=== PATIENT | male | born 1960 | race Caucasian/White ===

== ENCOUNTER 2025-08-31 11:01 | Emergency (ER) | payer MEDICARE, SELFPAY ==
[2025-08-31 11:02] VITALS: BMI 28.8
--- NOTE | 2025-08-31 11:52 | XR_ITS ---
Examination: Left hip AP, lateral, AP pelvis 3 views Technique: Hip AP lateral, AP pelvis, 3 views Exam date and time: August 31, 2025, 1201 hours INDICATIONS: Left hip pain 1 month FINDINGS: Advanced left hip osteoarthritis No fracture Flattening fragmentation and sclerosis of the femoral head IMPRESSION: Advanced left hip osteoarthritis Prominent avascular necrosis left femoral head.
--- NOTE | 2025-08-31 11:52 | XR_ITS ---
EXAMINATION: Left femur 2 views TECHNIQUE: AP lateral left femur 2 views Date and time: August 31, 2025, total 07 hours INDICATIONS: Left femur pain 1 month. FINDINGS: Significant left hip osteoarthritis Sclerosis fragmentation and flattening of the left femoral head consistent with avascular necrosis Shaft of the femur are intact IMPRESSION: Significant left hip osteoarthritis Prominent avascular necrosis left femoral head
--- NOTE | 2025-08-31 11:52 | XR_ITS ---
Examination: Duplex scan of the lower extremity, unilateral left Date and time of exam: August 31, 2025, 12:26 p.m. INDICATIONS: Upper left leg pain beginning 3 months ago Technique: Duplex scan of the extremity veins using B-mode/grayscale imaging and Doppler spectral analysis and color flow Attention is directed to internal echogenicity, compression and augmentation involving these veins, color flow assessment, spectral analysis Findings: Major deep venous structures in the extremity demonstrate normal course and caliber. There is no evidence of deep vein thrombosis. Normal color flow and spectral analysis Impression: Negative for DVT..
[2025-08-31 12:15] VITALS: BP 170/85; PULSE 86; RESP 18; TEMP 36.8; O2SAT 98
--- NOTE | 2025-08-31 13:31 | EDNOTE_ITS ---
Lower Extremity Injury RME/HPI General Chief Complaint: Extremity Injury, Lower Stated Complaint: left leg pain Time Seen by Provider: 08/31/25 11:40 Arrival date/time: 08/31/25 11:01 65-year-old male presents to the emergency department for complaints of left hip pain patient report symptoms over the last 2 to 3 months patient reports no fever nausea or vomiting no swelling Limitations: no limitations Related Data Previous Rx's ?Medication ?Instructions ?Recorded hydrocodone 5 mg-acetaminophen 325 1 tab PO BID PRN pa in #10 tabs 08/31/25 mg tablet Review of Systems Review of Systems Systems Reviewed: All systems reviewed, normal except as documented Constitutional Constitutional: Reports system reviewed and no additional complaints, except as documented, Denies fever(s) and Denies headache(s) Eyes Eyes: Reports system reviewed and no additional complaints, except as documented and Denies blurry vision ENT Ears, Nose, Mouth, and Throat: Reports system reviewed and no additional complaints, except as documented, Denies headache(s), Denies nasal congestion and Denies nasal discharge Cardiovascular Cardiovascular: Reports system reviewed and no additional complaints, except as documented, Denies chest pain and Denies dyspnea Respiratory Respiratory: Reports system reviewed and no additional complaints, except as documented, Denies chest congestion, Denies cough and Denies dyspnea Gastrointestinal Gastrointestinal: Reports system reviewed and no additional complaints, except as documented and Denies abdominal pain Musculoskeletal Musculoskeletal: Reports system reviewed and no additional complaints, except as documented, Reports abnormal gait, Reports arthralgias, Denies joint swelling, Denies numbness, Reports stiffness and Denies tingling Integumentary/Breasts Skin/Breast: Reports system reviewed and no additional complaints, except as documented and Denies rash Neurologic Neurologic: Reports system reviewed and no additional complaints, except as documented, Reports as per HPI, Reports abnormal gait, Denies headache(s), Denies numbness and Denies tingling Past Medical History Social History SMOKING STATUS: Never smoker ED Exam General Limitations: Present no limitations General appearance: Present alert and in no apparent distress Head Head exam: Present atraumatic Eye Eye exam: Present normal appearance, PERRL and EOMI ENT ENT exam: Present normal exam, normal oropharynx and mucous membranes moist Neck Neck exam: Present normal inspection, full ROM and trachea midline Chest Chest inspection: Present normal inspection and symmetric chest wall rise Respiratory Respiratory exam: Present normal lung sounds bilaterally Cardiovascular Cardiovascular exam: Present regular rate, normal rhythm and normal heart sounds Abdominal Exam Abdominal exam: Present soft and normal bowel sounds Extremities Exam Extremities exam: Present full ROM, tenderness and normal capillary refill; Absent pedal edema, joint swelling or calf tenderness Back Exam Back exam: Present normal inspection and full ROM Neurological Exam Neurological exam: Present alert, oriented X3 and CN II-XII intact Psychiatric Psychiatric exam: Present normal affect and normal mood Skin Skin exam: Present warm, dry, intact and normal color Course Quality Measures none Orders Category Date Time Status US venous doppler LE LT Stat Exams 08/31/25 11:52 Completed XR femur LT 2V Stat Exams 08/31/25 11:52 Completed XR hip LT w pelvis 2-3V Stat Exams 08/31/25 11:52 Completed Ketorolac Inj [Toradol Inj] Med 08/31/25 11:52 Discontinued 30 mg IM X1 ONE Vital Signs Vital signs: Vital Signs Temperature 98.2 F 08/31/25 12:15 Pulse Rate 86 08/31/25 12:15 Respiratory Rate 18 08/31/25 12:15 Blood Pressure 170/85 H 08/31/25 12:15 Pulse Oximetry (%) 98 08/31/25 12:15 Oxygen Delivery Method Room Air 08/31/25 12:15 O2 saturation 98% room air wnl Extremity Injury, Lower MDM Narrative MDM Narrative:: 65-year-old male presents to the emergency department for complaints of left hip pain patient report symptoms over the last 2 to 3 months patient reports no fever nausea or vomiting no swelling On exam patient has pain left hip no swelling or bruising Imaging of the left hip obtained as well as ultrasound patient appears to have avascular necrosis Had a long conversation the patient about follow-up with PCP in order get a referral for orthopedics and surgical intervention Patient medicated for pain discharge home with pain medication For emergent concerns patient is instructed return for evaluation Patient data External records reviewed:: [facility] previous records Clinical information provided by:: patient Social determinants that could affect healthcare access:: none Patient has the following chronic illnesses:: History How is presenting disease/condition affected by chronic disease/condition?: uneffected by Evaluation data The following diagnostics were reviewed and interpreted by me:: radiology exam(s ) Lab and/or radiology exams considered but not ordered:: Radiology obtained Interpretation Summary: Reviewed by me Medications / Prescriptions Medications or Prescriptions considered but not ordered:: Given Medication administrations:: Medication Administration History Discontinued Medications Ketorolac Tromethamine (Ketorolac Inj 30 Mg/Ml Vial) 30 mg IM X1 ONE Stop: 08/31/25 11:53 Given Consultations Consultation(s) initiated? (list below): No Diagnosis Extremity Injury, Lower Differential Diagnosis: other Most likely diagnosis given after review of the tests above:: Avascular necrosis left hip Admission Indicated Admission indicated?: not indicated Admission Request Was there a request for admission?: No Disposition Plan Disposition Plan: Discharge Discharge Attestation Discharge Attestation: The patient and all family members were given an opportunity to ask questions and understood the discharge instructions. Discharge instructions specifically effects, indications for sooner follow up or return to the emergency department, and the expected course of current diagnosis. Patient condition: Stable Discharge Plan Plan Patient Disposition: HOME (Self Care) Discharge Disposition comment: Stable Prescriptions/Referrals Prescriptions/Med Rec: New hydrocodone-acetaminophen 5-325 mg tablet 1 tab PO BID MDD 10 PRN (Reason: pain) Qty: 10 0RF Referrals: No Primary/Family,Physician [Primary Care Provider] - 09/01/25 Problem List Clinical Impression: Avascular necrosis of bone of left hip Patient/Caregiver Discharge Instructions Additional Instructions: Please follow up with your primary care doctor in the next 24-48hrs for any worsening symptoms return here immediately Is important you see your PCP in order to be referred to a specialist for further evaluation and treatment of your avascular necrosis Print Language: Amharic Stand Alone Forms: Stefanie Award Info., Patient Portal Info Letter PA/JERAD Supervising Physician PA/JERAD Supervising Physician: Dr monroe
== END 2025-08-31 15:16 | disposition home or self-care (01) ==
PROVIDERS: Emergency Provider Nurse Practitioner Primary Care
DX: M87.9 Osteonecrosis, unspecified (principal)
CPT/HCPCS: 73502; 73552; 93971; 99282

== ENCOUNTER 2025-10-24 13:05 | Outpatient (AMB) | payer MEDICARE, MEDICAID, SELFPAY ==
[2025-10-24 13:17] VITALS: BP 129/72; PULSE 110; RESP 19; TEMP 36.3; O2SAT 97; BMI 27.4
--- NOTE | 2025-10-24 13:17 | ORTHONT_ITS ---
Vital signs 10/24/25 13:17 Height 1.73 m Height Method Stated Weight 82.185 kg Weight Measurement Method Standing Scale BMI 27.4 BP 129/72 Blood Pressure Source Automatic Cuff Blood Pressure Location Left Upper Arm Position Sitting Respiration 19 Pulse 110 H Pulse Source Monitor Temp 97.3 F Temp Source Temporal Artery Scan Pulse Oximetry (%) 97 Oxygen Delivery Method Room Air Med/Allergies Allergies & Medications Allergies No Known Allergies Allergy (Verified 10/24/25 13:18) Medication Reconciliation hydrocodone 5 mg-acetaminophen 325 mg tablet 1 tab PO BID PRN pain #10 tabs 08/31/25 [Rx Confirmed 10/24/25] ibuprofen 800 mg tablet 800 mg PO Q8H 10/24/25 [History Confirmed 10/24/25] levothyroxine 25 mcg capsule 25 mcg PO QDAY 10/24/25 [History Confirmed 10/24/25] losartan 50 mg tablet 50 mg PO QDAY 10/24/25 [History Confirmed 10/24/25] Exam Exam Patient is in no acute distress and is cooperative with the examination today. Breathing is nonlabored. In no respiratory distress. Patient has no paraspinal tenderness. Spinal deformity cannot be appreciated. The gait of the patient is nonantalgic Bilateral extremities were evaluated and demonstrates sensation intact to light touch. Palpable pedal pulses are present. No significant edema is present. Bilateral knees were examined and the patient has full strength and range of motion.. The right hip was examined. Patient was able to flex to 90 degrees, adduct to 30 degrees, abduct to 40 degrees, internally rotate to 20 degrees, and externally rotate to 20 degrees. Patient has a negative logroll. Stinchfield is negative. The patient is nontender diffusely to touch. The left hip was examined. Patient was able to flex to 90 degrees, adduct to 30 degrees, abduct to 40 degrees, internally rotate to 10 degrees, and externally rotate to 20 degrees. Patient has a positive logroll and Stinchfield Assessment and Plan Problem List (1) Avascular necrosis of bone of left hip: Status: Inactive Plan ASSESSMENT AND PLAN 1. Avascular necrosis: The patient's symptoms and clinical presentation suggest a diagnosis of avascular necrosis. He reports persistent pain in the hip and knee area for the past 5 months, which has been worsening rapidly. He has been using ibuprofen 800 mg for pain relief, which has been ineffective. An MRI will be ordered to confirm the diagnosis. He is advised to reduce his smoking habit significantly due to the high risk associated with surgery. If the MRI confirms avascular necrosis and he reduces his smoking, a hip replacement surgery will be planned. An MRI will be ordered to confirm the diagnosis of avascular necrosis. Smoking cessation is strongly advised to reduce surgical risks. If the MRI confirms avascular necrosis and smoking is reduced, hip replacement surgery will be pl anned. The patient should continue using ibuprofen 800 mg for pain management until further evaluation. Risks of surgery include infection, blood clots, and complications related to anesthesia. Benefits include pain relief and improved mobility. The patient should be educated on the importance of smoking cessation and its impact on surgical outcomes. Lifestyle modifications include reducing alcohol intake and smoking cessation. No alternative treatments were discussed. 2. Smoking cessation: The patient has been smoking for 50 years and currently smokes more than a pack a day. He is advised to cut down on smoking significantly as it increases the risk associated with the potential hip replacement surgery. Smoking cessation is crucial for his overall health and surgical outcomes. Smoking cessation is advised to reduce surgical risks and improve overall health. The patient should be educated on the benefits of quitting smoking, including reduced risk of complications during and after surgery. Nicotine replacement therapy or medications such as varenicline may be considered to assist with smoking cessation. Risks of continued smoking include increased surgical complications, delayed healing, and higher risk of cardiovascular diseases. Benefits of quitting include improved lung function, reduced risk of heart disease, and better surgical outcomes. Lifestyle modifications include a voiding triggers that lead to smoking and seeking support from smoking cessation programs. No alternative treatments were discussed. Follow-up: The patient will follow up in 3 weeks post-MRI. 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 ([id number]) NM Intake Visit Data Collection New Patient or Established: New Patient (never been to [facility]) Reason for Visit:: IDIOPATHIC ASEPTIC LEFT FEMUR Seen by Clinical Staff ONLY (RN/MA): No Plant Operations Coordinator Required: Yes PCP or OBGYN visit in last 3 months: Yes Hx Now: No Do You Feel Safe at Home: Yes Authorities Contacted: N/A Questionairres Past Medical History Past Medical History Have you ever been diagnosed with any of the following: Respiratory Problems Smoking: Yes (50 YEARS 1 PACK A DAY) Endocrine Problems Diabetes Mellitus Type 1: Yes Hyperthyroidism: Yes Subjective Visit Visit for: new patient and hip (LEFT) Immunization / Flu Flu Vaccine in the Last 12 Months: No Flu Vaccine Exclusion Criteria: Refused by Patient History of Present Illness Chief complaint: Left hip pain Date of injury / onset of symptoms: 5 MONTHS HISTORY OF PRESENT ILLNESS I, Dilshad Schulte, have obtained verbal consent from the patient, to be recorded during this encounter which may include, but not limited to, medical history, examination, treatment plans, and relevant health information.? Patient was informed that recording will be read and reviewed by myself before inclusion in the medical chart. 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 He has been experiencing persistent pain in his left femur for the past 5 months, with no history of trauma or injury. The pain, which is constant and localized to the hip and knee, does not radiate. He reports a progressive worsening of his symptoms over time. Mobility is significantly impaired, to the extent that he is unable to perform simple tasks such as putting on his socks and shoes. He relies on a cane for support. He has not undergone any MRI scans. He has a history of back surgery in 03/2006. He has a smoking history of 50 years, currently smoking more than a pack a day. He also reports heavy alcohol consumption. He is diabetic, has high blood pressure, and cholesterol issues. He had thyroid surgery and is taking medication for that. PAST SURGICAL HISTORY: Back surgery in 03/2006 Thyroid surgery Personal History Red flag PMH: smoker and other (specify) (DRINKS ALCOHOL) BMI Counceling provided: Yes Pain Pain level (0-10): 10 Pain duration: ALL DAY Pain location: inside (medial), outside (lateral), anterior and posterior Pain quality: sharp and aching Pain timing: night, increases with activity and stairs Associated signs & symptoms: numbness, weakness and stiffness Ambulatory data Ambulatory device: cane Treatments Improvement with previous injections: No Improvement with PT: No Improvement with NSAIDS: no Review of Systems Review of Systems: All systems negative unless otherwise noted in HPI.
== END 2025-10-24 13:39 | disposition home or self-care (01) ==
LOC: HODSRG 13:05
PROVIDERS: PCP Nurse Practitioner Family; Referring Provider Nurse Practitioner Family; Supervising Provider Orthopaedic Surgery Adult Reconstructive Orthopaedic Surgery; Visit Provider Orthopaedic Surgery Adult Reconstructive Orthopaedic Surgery
DX: M87.852 Other osteonecrosis, left femur (principal); Z71.6 Tobacco abuse counseling; F17.210 Nicotine dependence, cigarettes, uncomplicated; Z28.21 Immunization not carried out because of patient refusal; Z60.3 Acculturation difficulty
CPT/HCPCS: 99204; G0463